=== PATIENT | female | born 1980 | race Caucasian/White ===

== ENCOUNTER 2016-09-17 15:01 | Emergency (ER) | payer MEDICAID ==
[2016-09-17 15:18] VITALS: BP 140/74
--- OUTSIDE RECORDS SUMMARY | 2016-09-17 16:16 | XMS REPORT | Continuity of Care Document ---
:1980 Author Organization [facility] ([facility]) Address [place] [address] Phone [phone] Care Team Providers Name Role Phone Provider, No-Primary Care Primary Care Provider Unavailable Source Comments This disclosure is being made pursuant to the Care Everywhere program, applicable federal and state laws, and may not contain all informaitonavailable regarding this patient.[facility] ([facility]) Active Allergies and Adverse Reactions Allergen Noted Date Severity Reactions Comments Benzocaine Stomach Pain Penicillins Urticaria (Hives) Current Medications Not on file Active Problems Not on file Social History Tobacco Use Types Packs/Day Years Used Date Never Assessed Last Filed Vital Signs Vital Sign Reading Time Taken Blood Pressure 96/68 05/31/2004 11:39 AM [employer] Pulse 84 05/31/2004 11:39 AM [employer] TEST [employer]ELOPER Temperature - - Respiratory Rate - - Height - - Weight 52.699 kg (116 lb 2.9 oz) 05/31/2004 11:39 AM [employer] 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
[2016-09-17] MEDS ORDERED: KETOROLAC TROMETHAMINE 60 MG/2 ML VIAL IM ONE ×2 (16:19→16:25)
[2016-09-17] MEDS ORDERED: ACETAMINOPHEN 500 MG TABLET PO ONE (16:20)
--- NOTE | 2016-09-17 16:28 | ERNOTE ---
Back Pain ER HPI Date of Service: 09/17/16 Presenting Symptoms: injury/pain to back Time Seen by Provider: 09/17/16 16:10 Source: patient, RN notes reviewed Exam Limitations: no limitations Immunizations: IMMUNIZATION HX History of Influenza Vaccine No Hx Pneumococcal Vaccination No Allergies/Adverse Reactions: Allergies Penicillins Allergy (Verified 09/17/16 15:18) Home Medications: HOME MEDICATIONS Ciprofloxacin HCl [Cipro] 500 mg PO BID #20 tablet 09/17/16 [Last Taken Unknown] Narrative: 36 y/o female ambulatory to the ED for back pain that began 5 days ago. She initially thought that she had twisted her back. She saw the chiropractor without improvement. The pain began in her left flank. She noticed yesterday that she had a fever. She also reports nausea but has not been vomiting. She denies any urinary symptoms. Date (Duration): 09/12/16 Timing: Reports: constant Quality/Severity: Reports: severe, aching Location of pain: Reports: mid back, no radiation Recent Injury?: Reports: possibly Possible Precipitating Factor: Reports: turning/bending Modifying Factors - (Improves): Reports: nothing Modifying Factors - (Worsens): Reports: nothing Associated Symptoms: Reports: fever/chills, difficulty walking. Denies: constipation/incontinence, problems urinating, numbess/weakness in legs Prior Treament: Denies: recently seen, similar symptoms before Review of Systems - Review of Systems Constitutional: Present: fever, chills, malaise EYE: Present: no symptoms reported ENT: Present: no symptoms reported Respiratory: Present: no symptoms reported Cardiology: Present: no symptoms reported Gastrointestinal/Abdominal: Present: nausea, eating less, drinking less. Absent : vomiting, diarrhea, constipation, abdominal pain Genitourinary: Absent: frequency, dysuria, hematuria Musculoskeletal: Present: back pain, muscle pain. Absent: joint pain Skin: Absent: rash, lesions, lumps Neurological: Absent: weakness, numbness, tingling Endocrine: Present: no symptoms reported Hematologic/Lymphatic: Present: no symptoms reported Psych: Present: no symptoms reported - Patient's Past Medical History Patient History - Medical: No pertinent hx Patient History - Cardiac/Respiratory: No pertinent hx Patient History - Cancer: No Hx of Cancer Patient History - Surgical Procedures: Tubal Ligation Patient History - Other: None LMP (females 10-50): 3 weeks - Social History Living Situations: home Psych History: No pertinent hx Smoking Status: Current every day smoker Alcohol Use: none Drug Use: none - Immunizations Hx Pneumococcal Vaccination: No History of Influenza Vaccine: No Physical Exam - Physical Exam General Appearance: Present: wd/wn, alert, mild distress Neck: Present: normal inspection, nontender, supple, full range of motion Respiratory: Present: no respiratory distress, normal breath sounds, no accessory muscle use, lungs clear Cardiovascular/Chest: Present: regular rate, rhythm, no murmur Gastrointestinal/Abdominal: Present: normal bowel sounds, nontender, nondistended, soft Back Exam: Present: no vertebral tenderness, CVA tenderness (L). Absent: CVA tenderness (R) Extremity Exam: Present: normal inspection, normal range of motion, no edema Neurological Exam: Present: alert, oriented, normal mood/affect, no motor/ sensory deficits Skin Exam: Present: normal color, warm/dry ED Progress - Results and Orders Patient's Lab Results:: I have reviewed the patient's lab results. - Vital Signs Patient's Vital Signs:: I have reviewed the patient's vital signs. Vital Signs: Vital Signs 09/17/16 15:09 Temperature 39.0 C H Pulse Rate 124 H Respiratory 12 Rate Blood Pressure 140/74 O2 Sat by Pulse 98 Oximetry - Progress/Reassessment Chief Complaint: Back Pain Progress:: Improved Departure Clinical Impression: Pyelonephritis - Departure Disposition: Home Follow Up Needed Condition: Stable Instructions: Pyelonephritis, Adult Additional Instructions: Push fluids Tylenol and/or ibuprofen for pain/fever Take all of your antibiotic Return for vomiting or worsening symptoms Recheck urine in 2 weeks Prescriptions: Ciprofloxacin HCl [Cipro] 500 mg PO BID #20 tablet
[2016-09-17 16:53] LABS: Urine Appearance Slightly Cloudy; Urine Bilirubin Negative (NEGATIVE); Urine Blood 250 /ul (NEGATIVE); Urine Color Yellow; Urine Ketone Negative (NEGATIVE); Urine Nitrite Negative (NEGATIVE); Urine Protein 30 mg/dL (NEGATIVE); Urine Urobilinogen Normal (NORMAL)
[2016-09-17 16:54] LABS: Urine RBC >50 /hpf (0-5); Urine WBC >50 /hpf (0-5)
[2016-09-17 16:55] LABS: Urine Bacteria 3+
[2016-09-17] MEDS ORDERED: CIPROFLOXACIN HCL 250 MG TABLET PO ONE (17:04)
[2016-09-17] MEDS ORDERED: CIPROFLOXACIN HCL 250 MG TABLET ONE (17:10)
== END 2016-09-17 17:15 | disposition home or self-care (01) ==
LOC: ER 15:01
DX: N10 Acute pyelonephritis (principal)